=== PATIENT | female | born 1960 | race Two or more races ===

== ENCOUNTER 2017-01-14 20:39 | Emergency (ER) | payer OTHER ==
[2017-01-14 21:03] VITALS: BP 155/93
[2017-01-14] MEDS ORDERED: Ondansetron 4 MG/2 ML SDV IV ONE ×2 (21:09→21:59)
[2017-01-14] MEDS ORDERED: Aspirin 81 MG Tab.Chew PO ONE (21:09)
--- NOTE | 2017-01-14 21:09 | EDM.PDOC ---
ED HPI GENERAL MEDICAL PROBLEM - General Chief Complaint: Chest Pain Stated Complaint: DIZZY,CHEST PAINS Time Seen by Provider: 01/14/17 21:00 Source of Information: Reports: Patient History Limitations: Reports: No Limitations - History of Present Illness INITIAL COMMENTS - FREE TEXT/NARRATIVE: This 56 yo female patient reports to the ED with chest pains, nausea and dizziness. The patient reports her dizziness and nausea started this evening at about 1730. The patient reports her chest pain started just prior to her arrival in the ED. The patient describes her chest pain as a heaviness, but the symptoms subsided prior to my examination. The patient reports she does have polycystic kidneys and has some upper abdominal discomfort on a regular basis due to that. The patient reports after the dizziness started, she attempted to sit down and relax, but every time she got up she was having increased dizziness causing her to sit back down. 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: Other Medication(s) - Related Data Allergies Allergy/AdvReac Type Severity Reaction Status Date / Time ciprofloxacin [From Cipro] Allergy Cannot Verified 01/14/17 20:44 Remember ciprofloxacin HCl Allergy Cannot Verified 01/14/17 20:44 [From Cipro] Remember ibuprofen Allergy Cannot Verified 01/14/17 20:44 Remember latex Allergy Cannot Verified 01/14/17 20:44 Remember Penicillins Allergy Hives Verified 01/14/17 20:44 risedronate sodium Allergy Cannot Verified 01/14/17 20:44 [From Actonel] Remember Home Meds: Home Meds Aspirin [Halfprin] 81 mg PO DAILY 06/01/13 [History] FLUoxetine HCl [Prozac] 20 mg PO DAILY 06/01/13 [History] Labetalol [Normodyne] 200 mg PO DAILY 06/01/13 [History] Lisinopril [Prinivil] 5 mg PO DAILY 06/01/13 [History] Multivitamin [Multivitamins] 1 each PO BEDTIME 12/26/13 [History] Simvastatin [Zocor] 20 mg PO BEDTIME 06/01/13 [History] Zolpidem [Ambien] 5 mg PO BEDTIME PRN 06/01/13 [History] amLODIPine [Norvasc] 10 mg PO BEDTIME 06/01/13 [History] Past Medical History - Past Health History Medical/Surgical History: Denies Medical/Surgical History Social & Family History - Tobacco Use Smoking Status *Q: Never Smoker Used Tobacco, but Quit: Yes Second Hand Smoke Exposure: No - Alcohol Use Days Per Week of Alcohol Use: 0 - Recreational Drug Use Recreational Drug Use: No ED ROS GENERAL - Review of Systems Review Of Systems: ROS reveals no pertinent complaints other than HPI. ED EXAM, GENERAL - Physical Exam Exam: See Below Exam Limited By: No Limitations General Appearance: Alert, WD/WN, Moderate Distress, Obese Eye Exam: Bilateral Eye: EOMI, Normal Inspection, PERRL Ears: Normal External Exam, Normal Canal, Hearing Grossly Normal, Normal TMs Nose: Normal Inspection, Normal Mucosa, No Blood Throat/Mouth: Normal Inspection, Normal Lips, Normal Teeth, Normal Gums, Normal Oropharynx, Normal Voice, No Airway Compromise Head: Atraumatic, Normocephalic Neck: Normal Inspection, Supple, Non-Tender, Full Range of Motion Respiratory/Chest: No Respiratory Distress, Lungs Clear, Normal Breath Sounds, No Accessory Muscle Use, Chest Non-Tender Cardiovascular: Normal Peripheral Pulses, Regular Rate, Rhythm, No Edema, No Gallop, No JVD, No Murmur, No Rub GI/Abdominal: Normal Bowel Sounds, Soft, Tender (generalized upper abdominal tenderness to palpation) (Female) Exam: Deferred Rectal (Female) Exam: Deferred Back Exam: Normal Inspection, Full Range of Motion, NT Extremities: Normal Inspection, Normal Range of Motion, Non-Tender, Normal Capillary Refill, No Pedal Edema Neurological: Alert, Oriented, CN II-XII Intact, Normal Cognition, Normal Gait, Normal Reflexes, No Motor/Sensory Deficits Psychiatric: Normal Affect, Normal Mood Skin Exam: Warm, Dry, Intact, Normal Color, No Rash Lymphatic: No Adenopathy Course - Vital Signs Last Recorded V/S: Last Vital Signs Temp 36.2 C 01/14/17 21:02 Pulse 69 01/14/17 21:02 Resp 12 01/14/17 21:02 BP 155/93 H 01/14/17 21:02 Pulse Ox 100 01/14/17 21:02 - Orders/Labs/Meds Orders: Active Orders 24 hr Category Date Time Status EKG Documentation Completion [RC] URGENT Care 01/14/17 20:41 Active Labs: Laboratory Tests 01/14/17 01/14/17 Range/Units 20:50 20:50 WBC 7.0 (5.0-10.0) 10^3/uL RBC 4.19 L (4.2-5.4) 10^6/uL Hgb 12.9 (12.0-16.0) g/dL Hct 39.5 (37.0-47.0) % MCV 94.3 (80-100) fL MCH 30.8 (27.0-34.0) pg MCHC 32.7 L (33.0-35.0) g/dL Plt Count 235 (150-450) 10^3/uL Neut % (Auto) 40.9 L (42.2-75.2) % Lymph % (Auto) 41.4 (20.5-50.1) % [place] % (Auto) 14.1 H (2-8) % Eos % (Auto) 3.2 H (1.0-3.0) % Baso % (Auto) 0.4 (0.0-1.0) % Sodium 143 (135-145) mmol/L Potassium 4.7 (3.6-5.0) mmol/L Chloride 109 (101-111) mmol/L Carbon Dioxide 24.0 (21.0-31.0) mmol/L Anion Gap 14.7 BUN 29 H (7-18) mg/dL Creatinine 1.6 H (0.6-1.3) mg/dL Est Cr Clr Drug Dosing 35.33 mL/min Estimated GFR (MDRD) 33 BUN/Creatinine Ratio 18.12 Glucose 97 (74-105) mg/dL Calcium 9.4 (8.4-10.2) mg/dl Total Bilirubin 0.6 (0.2-1.0) mg/dL AST 28 (10-42) IU/L ALT 21 (10-60) IU/L Alkaline Phosphatase 73 (42-121) IU/L Troponin I < 0.02 (0.00-0.02) ng/ml Total Protein 7.2 (6.7-8.2) g/dl Albumin 4.4 (3.2-5.5) g/dl Globulin 2.8 Albumin/Globulin Ratio 1.57 Meds: Medications Discontinued Medications Generic Name Dose Route Start Last Admin Trade Name Jody PRN Reason Stop Dose Admin Aspirin 324 mg 01/14/17 21:09 01/14/17 21:14 Aspirin PO 01/14/17 21:10 324 mg ONETIME ONE Administration Meclizine HCl 25 mg 01/14/17 21:53 01/14/17 21:57 Antivert PO 01/14/17 21:54 25 mg ONETIME ONE Administration Ondansetron HCl 4 mg 01/14/17 21:09 01/14/17 21:14 Zofran IV 01/14/17 21:10 4 mg ONETIME ONE Administration Ondansetron HCl 4 mg 01/14/17 21:59 01/14/17 22:05 Zofran IV 01/14/17 22:00 4 mg ONETIME ONE Administration Departure - Departure Time of Disposition: 22:34 Disposition: Home, Self-Care 01 Condition: Fair Clinical Impression: Vertigo Instructions: Vertigo, [id number] Forms: ED Department Discharge Care Plan Goals: The patient and family were advised of the examination, lab, EKG and x-ray result during the visit. The patient was given IV Zofran x2, oral aspirin and oral Meclizine while in the ED. The patient was discharged with a script for Meclizine (25 mg) #15 to take 1 by mouth 3 times per day as needed. The patient was encouraged to follow-up with her primary care facility for continued evaluation (physical therapy) and treatment [place] Maneuvers. If the patient has any additional symptoms or concerns, the patient should follow-up with her primary care facility or return to the emergency department. - My Orders Last 24 Hours: My Active Orders 01/14/17 20:41 EKG Documentation Completion [RC] URGENT - Assessment/Plan Last 24 Hours: My Active Orders 01/14/17 20:41 EKG Documentation Completion [RC] URGENT
[2017-01-14 21:23] LABS: CHLORIDE,CL 109 mmol/L (101-111); SODIUM,NA 143 mmol/L (135-145)
[2017-01-14] MEDS ORDERED: Meclizine 12.5 MG Tab PO ONE (21:53)
[2017-01-14] MEDS ORDERED: Ondansetron 4 MG Tab.DIS PO ONE (23:01)
[2017-01-14] MEDS ORDERED: Ondansetron 4 MG Tab.DIS ONE (23:01)
--- NOTE | 2017-01-15 22:18 | EKG ---
01/14/2017 - ARCELIA SILVA - This 12-lead EKG shows a normal sinus rhythm with a ventricular rate of 67. Normal axis and intervals. No acute ST-segment or T-wave changes. [facility] /[id number]
== END 2017-01-14 23:06 | disposition home or self-care (01) ==
LOC: DL.ED 20:39
DX: R42 Dizziness and giddiness (principal); Z88.1 Allergy status to other antibiotic agents; Z88.8 Allergy status to other drugs, medicaments and biological substances; Z91.040 Latex allergy status; Z79.82 Long term (current) use of aspirin; Z79.899 Other long term (current) drug therapy
CPT/HCPCS: 36415; 71010; 80053; 84484; 85025; 93005; 96374; 96375; 99285; A9270; J2405

== ENCOUNTER 2017-11-06 13:23 | Emergency (ER) | payer OTHER ==
[2017-11-06 14:30] VITALS: BP 141/90
[2017-11-06] MEDS: Acetaminophen/HYDROcodone 325-10 MG Tab PO ONE ×2 (14:40→15:30)
--- NOTE | 2017-11-06 15:24 | EDM.PDOC ---
Scribed by Vaishali Ramsey 11/06/17 1524 for Grover Baron MD ED HPI GENERAL MEDICAL PROBLEM - General Chief Complaint: Upper Extremity Injury/Pain Stated Complaint: LEFT ARM, FELL Time Seen by Provider: 11/06/17 14:24 Source of Information: Reports: Patient, RN, RN Notes Reviewed History Limitations: Reports: No Limitations - History of Present Illness INITIAL COMMENTS - FREE TEXT/NARRATIVE: Patient presents to ER with complaint of ground level fall with left wrist injury. No other injury. Onset: Today Duration: Getting Worse Location: Reports: Upper Extremity, Left Quality: Reports: Ache Severity: Severe Improves with: Reports: None Worsens with: Reports: None Associated Symptoms: Reports: No Other Symptoms Left Lower Arm Pain Score (Numeric/FACES): 7 - Related Data Allergies Allergy/AdvReac Type Severity Reaction Status Date / Time ciprofloxacin [From Cipro] Allergy Cannot Verified 01/14/17 20:44 Remember ciprofloxacin HCl Allergy Cannot Verified 01/14/17 20:44 [From Cipro] Remember ibuprofen Allergy Cannot Verified 01/14/17 20:44 Remember latex Allergy Cannot Verified 01/14/17 20:44 Remember Penicillins Allergy Hives Verified 01/14/17 20:44 risedronate sodium Allergy Cannot Verified 01/14/17 20:44 [From Actonel] Remember Home Meds: Home Meds Aspirin [Halfprin] 81 mg PO DAILY 06/01/13 [History] FLUoxetine HCl [Prozac] 20 mg PO DAILY 06/01/13 [History] Labetalol [Normodyne] 200 mg PO DAILY 06/01/13 [History] Lisinopril [Prinivil] 5 mg PO DAILY 06/01/13 [History] Multivitamin [Multivitamins] 1 each PO BEDTIME 06/01/13 [History] Simvastatin [Zocor] 20 mg PO BEDTIME 06/01/13 [History] Zolpidem [Ambien] 5 mg PO BEDTIME PRN 06/01/13 [History] amLODIPine [Norvasc] 10 mg PO BEDTIME 06/01/13 [History] Past Medical History - Past Health History Medical/Surgical History: Denies Medical/Surgical History Cardiovascular History: Reports: High Cholesterol, Hypertension Genitourinary History: Reports: Other (See Below) Other Genitourinary History: Polycystic kidney disease, stage 3 Social & Family History - Family History Family Medical History: Noncontributory - Caffeine Use Caffeine Use: Reports: Coffee Review of Systems - Review of Systems Review Of Systems: ROS reveals no pertinent complaints other than HPI. ED EXAM, GENERAL - Physical Exam Exam: See Below Exam Limited By: No Limitations General Appearance: Alert, WD/WN, No Apparent Distress Head: Atraumatic, Normocephalic Neck: Normal Inspection, Supple, Non-Tender, Full Range of Motion Respiratory/Chest: No Respiratory Distress Extremities: Normal Capillary Refill, Arm Pain (acutely tender at left wrist with mild soft tissue swelling. No visible bruising or deformity. Normal skin.) Neurological: Alert, Oriented, CN II-XII Intact, Normal Cognition, Normal Gait, No Motor/Sensory Deficits Psychiatric: Normal Affect Skin Exam: Warm, Dry, Intact, Normal Color, No Rash ED TRAUMA EXTREMITY PROCEDURES - Splinting Left Upper Extremity Splint Site: left wrist Pre-Procedure NV Status: Normal Post-Procedure NV Status: Normal Splint Material: Fiberglass Splint Design: Volar, Sling Applied & Form Fitted By: Provider Provider Post-Splint Application NV Check: NV Status Normal, Good Position Complications: No Course - Vital Signs Last Recorded V/S: Last Vital Signs Temp 36.3 C 11/06/17 14:28 Pulse 80 11/06/17 14:28 Resp 20 11/06/17 14:28 BP 141/90 H 11/06/17 14:28 Pulse Ox 99 11/06/17 14:28 - Orders/Labs/Meds Orders: Active Orders 24 hr Category Date Time Status Splinting [RC] ASDIRECTED Care 11/06/17 14:27 Active Meds: Medications Discontinued Medications Generic Name Dose Route Start Last Admin Trade Name Freq PRN Reason Stop Dose Admin Hydrocodone Bitart/Acetaminophen 1 tab 11/06/17 14:27 11/06/17 14:40 [place] 325-10 Mg PO 11/06/17 14:28 1 tab ONETIME ONE Administration - Radiology Interpretation Free Text/Narrative:: Left forearm x-ray: Acute distal radius fracture, as above. See rad report. Left wrist x-ray: Acute distal radius fracture, as above. See rad report. Departure - Departure Time of Disposition: 15:19 Disposition: Home, Self-Care 01 Condition: Good Clinical Impression: Closed fracture of distal end of radius Qualifiers: Encounter type: initial encounter Fracture morphology: unspecified fracture morphology Laterality: left Qualified Code(s): S52.502A - Unspecified fracture of the lower end of left radius, initial encounter for closed fracture - Discharge Information Instructions: Wrist Fracture Treated With Immobilization, [id number], Cast or Splint Care, Adult, [id number] Referrals: Calixto Polo MD [Primary Care Provider] - Forms: ED Department Discharge Additional Instructions: Rx: Hydrocodone APAP 5mg/325mg *Do not drive while under the influence of this medication. Do not remove splint. Call [facility] Wednesday (November 08) to schedule an appointment: [phone] - My Orders Last 24 Hours: My Active Orders 11/06/17 14:27 Splinting [RC] ASDIRECTED - Assessment/Plan Last 24 Hours: My Active Orders 11/06/17 14:27 Splinting [RC] ASDIRECTED I have read and agree with the documentation that has been completed regarding this visit. By signing this record, I attest that the documentation was completed in my physical presence and is an accurate record of the encounter.
== END 2017-11-06 15:38 | disposition home or self-care (01) ==
LOC: DL.ED 13:23
DX: S52.502A Unspecified fracture of the lower end of left radius, initial encounter for closed fracture (principal); E78.00 Pure hypercholesterolemia, unspecified; I10 Essential (primary) hypertension; Z88.1 Allergy status to other antibiotic agents; Z88.6 Allergy status to analgesic agent; Z91.040 Latex allergy status; Z88.0 Allergy status to penicillin; Z88.8 Allergy status to other drugs, medicaments and biological substances; Z79.82 Long term (current) use of aspirin; Z79.899 Other long term (current) drug therapy; W19.XXXA Unspecified fall, initial encounter
CPT/HCPCS: 73090-LT; 73100-LT; 99283; A9270-GY

== ENCOUNTER 2019-06-05 20:25 | Emergency (ER) | payer BC, OTHER ==
[2019-06-05 21:02] VITALS: BP 142/68; PULSE 91
[2019-06-05] MEDS ORDERED: Ondansetron 4 MG/2 ML SDV IV ONE (21:04)
[2019-06-05] MEDS ORDERED: Sodium Chloride 0.9% 1,000 ML IV ONE (21:04)
[2019-06-05 21:53] LABS: ANION GAP 14.9
[2019-06-05] MEDS ORDERED: Acetaminophen 325 MG Tab PO ONE (22:08)
[2019-06-05] MEDS ORDERED: cefTRIAXone 1 GM, Lidocaine 1% 2.1 ML IM ONE ×2 (22:48)
--- NOTE | 2019-06-05 22:58 | EDM.PDOC ---
ED HPI GENERAL MEDICAL PROBLEM - General Chief Complaint: General Stated Complaint: THROWING UP JUST SICK FLU Time Seen by Provider: 06/05/19 21:10 Source of Information: Reports: Patient, RN History Limitations: Reports: No Limitations - History of Present Illness INITIAL COMMENTS - FREE TEXT/NARRATIVE: ED with c/o fever chills back/ kidney pain vomiting x2 today. decreased appetite but tolerating liquids well. Generalized Pain Score (Numeric/FACES): 7 - Related Data Allergies Allergy/AdvReac Type Severity Reaction Status Date / Time ciprofloxacin [From Cipro] Allergy Cannot Verified 06/05/19 20:59 Remember ciprofloxacin HCl Allergy Cannot Verified 06/05/19 20:59 [From Cipro] Remember ibuprofen Allergy Cannot Verified 06/05/19 20:59 Remember latex Allergy Cannot Verified 06/05/19 20:59 Remember Penicillins Allergy Hives Verified 06/05/19 20:59 risedronate sodium Allergy Cannot Verified 06/05/19 20:59 [From Actonel] Remember Home Meds: Home Meds Aspirin [Halfprin] 81 mg PO DAILY 06/01/13 [History] FLUoxetine HCl [Prozac] 20 mg PO DAILY 06/01/13 [History] Labetalol [Normodyne] 200 mg PO DAILY 06/01/13 [History] Multivitamin [Multivitamins] 1 each PO BEDTIME 06/01/13 [History] Simvastatin [Zocor] 20 mg PO BEDTIME 06/01/13 [History] Zolpidem [Ambien] 5 mg PO BEDTIME PRN 06/01/13 [History] amLODIPine [Norvasc] 10 mg PO BEDTIME 06/01/13 [History] lisinopriL [Prinivil] 5 mg PO DAILY 06/01/13 [History] Past Medical History - Past Health History Medical/Surgical History: Denies Medical/Surgical History Cardiovascular History: Reports: High Cholesterol, Hypertension Respiratory History: Reports: None Genitourinary History: Reports: Other (See Below) Other Genitourinary History: Polycystic kidney disease, stage 3 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 Musculoskeletal History: Reports: None Psychiatric History: Reports: None Endocrine/Metabolic History: Reports: None Hematologic History: Reports: None Immunologic History: Reports: None Oncologic (Cancer) History: Reports: None Dermatologic History: Reports: None - Past Surgical History HEENT Surgical History: Reports: Adenoidectomy, Tonsillectomy Social & Family History - Family History Family Medical History: Noncontributory - Tobacco Use Smoking Status *Q: Never Smoker - Caffeine Use Caffeine Use: Reports: Coffee - Recreational Drug Use Recreational Drug Use: No ED ROS GENERAL - Review of Systems Review Of Systems: See Below Constitutional: Reports: Fever, Malaise, Decreased Appetite HEENT: Reports: No Symptoms Respiratory: Reports: No Symptoms Cardiovascular: Reports: No Symptoms : Reports: Flank Pain. Denies: Frequency Musculoskeletal: Reports: Muscle Stiffness Skin: Reports: No Symptoms Neurological: Reports: No Symptoms ED EXAM, GENERAL - Physical Exam Exam: See Below Exam Limited By: No Limitations General Appearance: Alert, Mild Distress Eye Exam: Bilateral Eye: EOMI Ears: Normal External Exam Nose: Normal Inspection Throat/Mouth: Normal Inspection Head: Atraumatic, Normocephalic Neck: Normal Inspection Respiratory/Chest: No Respiratory Distress, Lungs Clear, Normal Breath Sounds Cardiovascular: Normal Peripheral Pulses, Regular Rate, Rhythm GI/Abdominal: Normal Bowel Sounds Extremities: Normal Inspection Neurological: Alert, Oriented Psychiatric: Normal Affect Skin Exam: Warm, Dry, Intact, Normal Color Course - Vital Signs Last Recorded V/S: Last Vital Signs Temp 98.3 F 06/05/19 21:00 Pulse 91 06/05/19 21:00 Resp 18 06/05/19 21:00 BP 142/68 H 06/05/19 21:00 Pulse Ox 100 06/05/19 21:00 - Orders/Labs/Meds Orders: Active Orders 24 hr Category Date Time Status CULTURE URINE [RM] Urgent Lab 06/05/19 21:55 Received Labs: Laboratory Tests 06/05/19 06/05/19 06/05/19 Range/Units 21:20 21:20 21:55 WBC 9.4 (5.0-10.0) 10^3/uL RBC 3.99 L (4.2-5.4) 10^6/uL Hgb 12.4 (12.0-16.0) g/dL Hct 37.3 (37.0-47.0) % MCV 93.5 (80-100) fL MCH 31.1 (27.0-34.0) pg MCHC 33.2 (33.0-35.0) g/dL Plt Count 132 L D (150-450) 10^3/uL Neut % (Auto) 77.2 H (42.2-75.2) % Lymph % (Auto) 9.4 L (20.5-50.1) % [place] % (Auto) 13.0 H (2-8) % Eos % (Auto) 0.0 L (1.0-3.0) % Baso % (Auto) 0.4 (0.0-1.0) % Sodium 134 L (135-145) mmol/L Potassium 3.9 (3.6-5.0) mmol/L Chloride 103 (101-111) mmol/L Carbon Dioxide 20.0 L (21.0-31.0) mmol/L Anion Gap 14.9 BUN 30 H (7-18) mg/dL Creatinine 2.0 H (0.6-1.3) mg/dL Est Cr Clr Drug Dosing 28.70 mL/min Estimated GFR (MDRD) 26 BUN/Creatinine Ratio 15.00 Glucose 135 H (74-105) mg/dL Calcium 8.9 (8.4-10.2) mg/dl Total Bilirubin 0.7 (0.2-1.0) mg/dL AST 37 (10-42) IU/L ALT 18 (10-60) IU/L Alkaline Phosphatase 71 (42-121) IU/L Total Protein 6.7 (6.7-8.2) g/dl Albumin 4.0 (3.2-5.5) g/dl Globulin 2.7 Albumin/Globulin Ratio 1.48 Amylase 46 (28-100) U/L Lipase 24 (22-51) U/L Urine Color Yellow (YELLOW) Urine Appearance Slightly cloudy (CLEAR) Urine pH 6.0 (5.0-9.0) Ur Specific [place] 1.010 (1.005-1.030) Urine Protein 30 H (NEGATIVE) Urine Glucose (UA) Negative (NEGATIVE) Urine Ketones Trace H (NEGATIVE) Urine Occult Blood Negative (NEGATIVE) Urine Nitrite Negative (NEGATIVE) Urine Bilirubin Negative (NEGATIVE) Urine Urobilinogen 0.2 (0.2-1.0) mg/dL Ur Leukocyte Esterase Moderate H (NEGATIVE) Urine RBC 0-5 /HPF Urine WBC 30-40 H (0-5/HPF) /HPF Ur Epithelial Cells Moderate H (NOT SEEN) /HPF Urine Bacteria Moderate H (0-FEW/HPF) /HPF Meds: Medications Discontinued Medications Generic Name Dose Route Start Last Admin Trade Name Jody PRN Reason Stop Dose Admin Acetaminophen 650 mg 06/05/19 22:08 06/05/19 22:16 Tylenol PO 06/05/19 22:09 650 mg NOW ONE Administration Ceftriaxone Sodium 1 gm/ 0 gm 06/05/19 22:48 06/05/19 23:01 Lidocaine HCl 2.1 ml IM 06/05/19 22:49 2.1 inj ONETIME ONE Administration Sodium Chloride 1,000 mls @ 999 mls/hr 06/05/19 21:04 06/05/19 22:29 Normal Saline IV 06/05/19 22:04 Infused .BOLUS ONE Infusion Ondansetron HCl 4 mg 06/05/19 21:04 06/05/19 21:22 Zofran IV 06/05/19 21:05 4 mg ONETIME ONE Administration Departure - Departure Time of Disposition: 22:55 Disposition: Home, Self-Care 01 Condition: Good Clinical Impression: UTI (urinary tract infection) Qualifiers: Urinary tract infection type: site unspecified Hematuria presence: without hematuria Qualified Code(s): N39.0 - Urinary tract infection, site not specified - Discharge Information *PRESCRIPTION DRUG MONITORING PROGRAM REVIEWED*: No *COPY OF PRESCRIPTION DRUG MONITORING REPORT IN PATIENT SUDHAKAR: No Instructions: Urinary Tract Infection, Adult, [id number] Referrals: PCP,None [Ordering Only Provider] - Forms: ED Department Discharge Additional Instructions: increase fluid intake cefdinir 300mg one twice daily for 10 days recheck clinic or wednesday diet as tolerated Sepsis Event Note - Evaluation Sepsis Screening Result: No Definite Risk - Focused Exam Vital Signs: Vital Signs Temp Pulse Resp BP Pulse Ox 06/05/19 21:00 98.3 F 91 18 142/68 H 100 Date Exam was Performed: 06/06/19 Time Exam was Performed: 04:52 - My Orders Last 24 Hours: My Active Orders 06/05/19 21:55 CULTURE URINE [RM] Urgent - Assessment/Plan Last 24 Hours: My Active Orders 06/05/19 21:55 CULTURE URINE [RM] Urgent
== END 2019-06-05 23:16 | disposition home or self-care (01) ==
LOC: DL.ED 20:25
DX: N39.0 Urinary tract infection, site not specified (principal); I10 Essential (primary) hypertension; Z88.1 Allergy status to other antibiotic agents; Z88.8 Allergy status to other drugs, medicaments and biological substances; Z88.0 Allergy status to penicillin; Z91.040 Latex allergy status; Z79.82 Long term (current) use of aspirin; Z79.899 Other long term (current) drug therapy
CPT/HCPCS: 36415; 80053; 81001; 82150; 83690; 85025; 87086; 87088; 87186; 87804; 96361; 96372; 96374; 99284; A9270; J0696; J2001; J2405; J7030

== ENCOUNTER 2021-02-28 19:23 | Emergency (ER) | payer BC, OTHER ==
[2021-02-28 19:54] VITALS: BP 149/89; PULSE 84
[2021-02-28] MEDS ORDERED: Acetaminophen 325 MG Tab PO ONE (20:48)
--- NOTE | 2021-02-28 21:17 | EDM.PDOC ---
ED HPI GENERAL MEDICAL PROBLEM - General Chief Complaint: General Stated Complaint: CHILLS, BONES HURT, SORE BLADDER, HEADACHE Time Seen by Provider: 02/28/21 20:51 Source of Information: Reports: Patient, RN, RN Notes Reviewed History Limitations: Reports: No Limitations - History of Present Illness INITIAL COMMENTS - FREE TEXT/NARRATIVE: Rachana is a 60 y/o female with a history of polycystic kidney disease who presents to the ED via personal vehicle with complaints of fever, muscle aches, nausea, and right flank pain. The patient states her symptoms began suddenly this morning upon awakening and have maintained throughout the day. She states she typically feels this way when she has a urinary tract infection. She denies dysuria, hematuria, or vaginal discharge. She denies recent illness, shortness of breath, abdominal pain, vomiting, constipation, or diarrhea. She has taken no medications or performed any supportive cares for her symptoms. The patient states she is vaccinated for COVID. She denies tobacco, alcohol, or recreational drug use. - Related Data Allergies Allergy/AdvReac Type Severity Reaction Status Date / Time ciprofloxacin [From Cipro] Allergy Cannot Verified 06/05/19 20:59 Remember ciprofloxacin HCl Allergy Cannot Verified 06/05/19 20:59 [From Cipro] Remember ibuprofen Allergy Cannot Verified 06/05/19 20:59 Remember latex Allergy Cannot Verified 06/05/19 20:59 Remember Penicillins Allergy Hives Verified 06/05/19 20:59 risedronate sodium Allergy Cannot Verified 06/05/19 20:59 [From Actonel] Remember Home Meds: Home Meds Aspirin [Halfprin] 81 mg PO DAILY 06/01/13 [History] FLUoxetine HCl [Prozac] 20 mg PO DAILY 06/01/13 [History] Labetalol [Normodyne] 200 mg PO DAILY 06/01/13 [History] Multivitamin [Multivitamins] 1 each PO BEDTIME 06/01/13 [History] Simvastatin [Zocor] 20 mg PO BEDTIME 06/01/13 [History] Zolpidem [Ambien] 5 mg PO BEDTIME PRN 06/01/13 [History] amLODIPine [Norvasc] 10 mg PO BEDTIME 06/01/13 [History] Omeprazole 20 mg PO DAILY 12/23/20 [History] Past Medical History - Past Health History Medical/Surgical History: Denies Medical/Surgical History Cardiovascular History: Reports: High Cholesterol, Hypertension Respiratory History: Reports: None Genitourinary History: Reports: Other (See Below) Other Genitourinary History: Polycystic kidney disease, stage 3 [employer]ER History: Reports: None Musculoskeletal History: Reports: None Psychiatric History: Reports: None Endocrine/Metabolic History: Reports: None Hematologic History: Reports: None Immunologic History: Reports: None Oncologic (Cancer) History: Reports: None Dermatologic History: Reports: None - Past Surgical History HEENT Surgical History: Reports: Adenoidectomy, Tonsillectomy Social & Family History - Family History Family Medical History: No Pertinent Family History - Caffeine Use Caffeine Use: Reports: Coffee ED ROS GENERAL - Review of Systems Review Of Systems: Comprehensive ROS is negative, except as noted in HPI. ED EXAM, GENERAL - Physical Exam Exam: See Below Exam Limited By: No Limitations General Appearance: Alert, Obese, Other (Ill-appearing female) Eye Exam: Bilateral Eye: EOMI, Normal Inspection, PERRL (3mm) Ears: Normal External Exam, Normal Canal, Hearing Grossly Normal Ear Exam: Bilateral Ear: Auricle Normal, Canal Normal, TM normal Nose: Normal Inspection, Normal Mucosa, No Blood Throat/Mouth: Normal Inspection, Normal Oropharynx, Normal Voice, No Airway Compromise Head: Atraumatic, Normocephalic Neck: Normal Inspection, Supple, Non-Tender, Full Range of Motion. No: Lymphadenopathy (L), Lymphadenopathy (R) Respiratory/Chest: No Respiratory Distress, Lungs Clear, Normal Breath Sounds, No Accessory Muscle Use, Chest Non-Tender Cardiovascular: Normal Peripheral Pulses, Regular Rate, Rhythm, No Edema, No Gallop, No JVD, No Murmur, No Rub Peripheral Pulses: 2+: Radial (L), Radial (R) GI/Abdominal: Normal Bowel Sounds, Soft, Non-Tender, No Distention, No Abnormal Bruit, No Mass, Pelvis Stable (Female) Exam: Deferred Rectal (Female) Exam: Deferred Back Exam: Normal Inspection, Full Range of Motion, CVA Tenderness (R). No: CVA Tenderness (L) Extremities: Normal Inspection, Normal Range of Motion, Normal Capillary Refill Neurological: Alert, Oriented, CN II-XII Intact, Normal Cognition, Normal Gait, No Motor/Sensory Deficits Psychiatric: Normal Affect, Normal Mood Skin Exam: Warm, Dry, Intact, Normal Color, No Rash. No: Cyanosis, Jaundice, Mottled, Pallor Course - Vital Signs Last Recorded V/S: Last Vital Signs Temp 97.9 F 02/28/21 19:49 Pulse 84 02/28/21 19:49 Resp 18 02/28/21 19:49 BP 149/89 H 02/28/21 19:49 Pulse Ox 95 02/28/21 19:49 - Orders/Labs/Meds Labs: Laboratory Tests 02/28/21 02/28/21 02/28/21 Range/Units 19:45 19:45 21:06 WBC 7.4 (5.0-10.0) 10^3/uL RBC 3.92 L (4.2-5.4) 10^6/uL Hgb 12.1 (12.0-16.0) g/dL Hct 37.2 (37.0-47.0) % MCV 94.9 (80-100) fL MCH 30.9 (27.0-34.0) pg MCHC 32.5 L (33.0-35.0) g/dL Plt Count 230 D (150-450) 10^3/uL Neut % (Auto) 72.0 (42.2-75.2) % Lymph % (Auto) 15.2 L (20.5-50.1) % [place] % (Auto) 11.6 H (2-8) % Eos % (Auto) 0.8 L (1.0-3.0) % Baso % (Auto) 0.4 (0.0-1.0) % Sodium (136-145) mmol/L Potassium (3.5-5.1) mmol/L Chloride (98-107) mmol/L Carbon Dioxide (21-32) mmol/L Anion Gap (7-13) mEq/L BUN (7-18) mg/dL Creatinine (0.55-1.02) mg/dL Est Cr Clr Drug Dosing Estimated GFR (MDRD) BUN/Creatinine Ratio (No establ ref range) Glucose (70-99) mg/dL Calcium (8.5-10.1) mg/dL Magnesium (1.8-2.4) mg/dL Total Bilirubin (0.2-1.0) mg/dL AST (15-37) U/L ALT (14-59) U/L Alkaline Phosphatase (46-116) U/L C-Reactive Protein (0.0-0.9) mg/dL Total Protein (6.4-8.2) g/dL Albumin (3.4-5.0) g/dL Globulin Albumin/Globulin Ratio Urine Color Yellow (YELLOW) Urine Appearance Slightly cloudy (CLEAR) Urine pH 7.5 (5.0-9.0) Ur Specific [place] 1.020 (1.005-1.030) Urine Protein Negative (NEGATIVE) Urine Glucose (UA) Negative (NEGATIVE) Urine Ketones Negative (NEGATIVE) Urine Occult Blood Negative (NEGATIVE) Urine Nitrite Negative (NEGATIVE) Urine Bilirubin Negative (NEGATIVE) Urine Urobilinogen 0.2 (0.2-1.0) mg/dL Ur Leukocyte Esterase Trace H (NEGATIVE) Urine RBC 0-5 (0-5) /HPF Urine WBC 5-10 H (0-5/HPF) /HPF Ur Epithelial Cells Rare (NOT SEEN) /HPF Urine Bacteria Rare (0-FEW/HPF) /HPF Urine Mucus Rare (NOT SEEN) /LPF SARS-CoV-2 RNA (STACEY) Negative (NEGATIVE) 02/28/21 Range/Units 21:06 WBC (5.0-10.0) 10^3/uL RBC (4.2-5.4) 10^6/uL Hgb (12.0-16.0) g/dL Hct (37.0-47.0) % MCV (80-100) fL MCH (27.0-34.0) pg MCHC (33.0-35.0) g/dL Plt Count (150-450) 10^3/uL Neut % (Auto) (42.2-75.2) % Lymph % (Auto) (20.5-50.1) % [place] % (Auto) (2-8) % Eos % (Auto) (1.0-3.0) % Baso % (Auto) (0.0-1.0) % Sodium 134 L (136-145) mmol/L Potassium 4.8 (3.5-5.1) mmol/L Chloride 101 (98-107) mmol/L Carbon Dioxide 24 (21-32) mmol/L Anion Gap 13.8 H (7-13) mEq/L BUN 25 H (7-18) mg/dL Creatinine 2.23 H (0.55-1.02) mg/dL Est Cr Clr Drug Dosing TNP Estimated GFR (MDRD) 22 BUN/Creatinine Ratio 11.2 (No establ ref range) Glucose 105 H (70-99) mg/dL Calcium 8.9 (8.5-10.1) mg/dL Magnesium 1.8 (1.8-2.4) mg/dL Total Bilirubin 0.7 (0.2-1.0) mg/dL AST 18 (15-37) U/L ALT 23 (14-59) U/L Alkaline Phosphatase 82 (46-116) U/L C-Reactive Protein 1.2 H (0.0-0.9) mg/dL Total Protein 6.8 (6.4-8.2) g/dL Albumin 3.7 (3.4-5.0) g/dL Globulin 3.1 Albumin/Globulin Ratio 1.2 Urine Color (YELLOW) Urine Appearance (CLEAR) Urine pH (5.0-9.0) Ur Specific [place] (1.005-1.030) Urine Protein (NEGATIVE) Urine Glucose (UA) (NEGATIVE) Urine Ketones (NEGATIVE) Urine Occult Blood (NEGATIVE) Urine Nitrite (NEGATIVE) Urine Bilirubin (NEGATIVE) Urine Urobilinogen (0.2-1.0) mg/dL Ur Leukocyte Esterase (NEGATIVE) Urine RBC (0-5) /HPF Urine WBC (0-5/HPF) /HPF Ur Epithelial Cells (NOT SEEN) /HPF Urine Bacteria (0-FEW/HPF) /HPF Urine Mucus (NOT SEEN) /LPF SARS-CoV-2 RNA (STACEY) (NEGATIVE) Meds: Medications Discontinued Medications Generic Name Dose Route Start Last Admin Trade Name Freq PRN Reason Stop Dose Admin Acetaminophen 650 mg 02/28/21 20:48 02/28/21 20:53 Acetaminophen 325 Mg Tab PO 02/28/21 20:49 650 mg NOW ONE Administration - Re-Assessments/Exams Free Text/Narrative Re-Assessment/Exam: 02/28/21 Acetaminophen 650mg PO administered for fever. Findings of examination and lab work reviewed with patient. Discussed fluids and Zofran for symptoms; patient states she would like to discharge home without fluids or antiemetic. Red flag signs and symptoms which would warrant reevaluation reviewed. Patient verbalized understanding and agreement with the plan of care. Departure - Departure Time of Disposition: 22:51 Disposition: Home, Self-Care 01 Condition: Fair Clinical Impression: History of polycystic kidney disease Fever Qualifiers: Fever type: unspecified Qualified Code(s): R50.9 - Fever, unspecified - Discharge Information *PRESCRIPTION DRUG MONITORING PROGRAM REVIEWED*: Not Applicable *COPY OF PRESCRIPTION DRUG MONITORING REPORT IN PATIENT SUDHAKAR: Not Applicable Instructions: Fever, Adult Referrals: Marky Chaidez [Primary Care Provider] - Forms: ED Department Discharge Additional Instructions: 1.) Follow up with your primary care provider in 3-5 days regarding today's visit. 2.) Drink plenty of fluids to stay hydrated. 3.) Eat small, snack-sized meals to avoid nausea. 4.) Return to the emergency department with any persistent or worsening symptoms in the next 24-48 hours.
[2021-02-28 21:39] LABS: ANION GAP 13.8 mEq/L (7-13); CHLORIDE,CL 101 mmol/L (98-107); SODIUM,NA 134 mmol/L (136-145)
== END 2021-02-28 23:09 | disposition home or self-care (01) ==
LOC: DL.ED 19:23
DX: R50.9 Fever, unspecified (principal); E78.00 Pure hypercholesterolemia, unspecified; I10 Essential (primary) hypertension; Z87.898 Personal history of other specified conditions; Z88.1 Allergy status to other antibiotic agents; Z88.6 Allergy status to analgesic agent; Z91.040 Latex allergy status; Z88.0 Allergy status to penicillin; Z88.8 Allergy status to other drugs, medicaments and biological substances; Z79.82 Long term (current) use of aspirin; Z79.899 Other long term (current) drug therapy; Z20.822 Contact with and (suspected) exposure to COVID-19
CPT/HCPCS: 36415; 80053; 81001; 83735; 85025; 86140; 87086; 87635; 99284; A9270; U0002

== ENCOUNTER 2021-03-02 17:50 | Emergency (ER) | payer BC, OTHER ==
[2021-03-02 18:27] LABS: AMPHETAMINES,URINE NEGATIVE (NEGATIVE); BARBITURATES,URINE NEGATIVE (NEGATIVE); BENZODIAZEPINE,URINE NEGATIVE (NEGATIVE); MDMA (ECSTASY), URINE NEGATIVE (NEGATIVE); METHADONE,URINE NEGATIVE (NEGATIVE); METHAMPHETAMINES,URINE NEGATIVE (NEGATIVE); OPIATES,URINE NEGATIVE (NEGATIVE); OXYCODONE,URINE NEGATIVE (NEGATIVE); PHENCYCLIDINE,URINE NEGATIVE (NEGATIVE); TCA,URINE NEGATIVE (NEGATIVE)
[2021-03-02 18:32] VITALS: BP 115/68; PULSE 95
[2021-03-02] MEDS ORDERED: Phenazopyridine 95 MG Tab PO ONE (20:22)
[2021-03-02] MEDS ORDERED: Ondansetron 4 MG Tab.DIS PO ONE (20:22)
[2021-03-02] MEDS ORDERED: Cephalexin 500 MG Cap PO ONE (20:25)
--- NOTE | 2021-03-02 20:26 | EDM.PDOC ---
ED HPI GENERAL MEDICAL PROBLEM - General Chief Complaint: Genitourinary Problem Stated Complaint: 98.4* ,CHILLS, SORE BLADDER, VOMITING, HEAD ACHE Time Seen by Provider: 03/02/21 20:30 Source of Information: Reports: Patient, Old Records, RN, RN Notes Reviewed History Limitations: Reports: No Limitations - History of Present Illness INITIAL COMMENTS - FREE TEXT/NARRATIVE: Rachana is a 60 y/o female with history of polycystic kidney disease who presents to the ED via personal vehicle with complaints of bilateral flank pain, body aches, headache, and dysuria. The patient states her symptoms have maintained since she was evaluated at this facility two nights ago. She notes she has been taking doses of Tylenol q6h with no alleviation in symptoms. Additionally, she notes nausea, vomiting, and diarrhea. - Related Data Allergies Allergy/AdvReac Type Severity Reaction Status Date / Time ciprofloxacin [From Cipro] Allergy Cannot Verified 03/02/21 18:33 Remember ciprofloxacin HCl Allergy Cannot Verified 03/02/21 18:33 [From Cipro] Remember ibuprofen Allergy Cannot Verified 03/02/21 18:33 Remember latex Allergy Cannot Verified 03/02/21 18:33 Remember Penicillins Allergy Hives Verified 03/02/21 18:33 risedronate sodium Allergy Cannot Verified 03/02/21 18:33 [From Actonel] Remember Home Meds: Home Meds Aspirin [Halfprin] 81 mg PO DAILY 06/01/13 [History] FLUoxetine HCl [Prozac] 20 mg PO DAILY 06/01/13 [History] Labetalol [Normodyne] 200 mg PO DAILY 06/01/13 [History] Multivitamin [Multivitamins] 1 each PO BEDTIME 06/01/13 [History] Simvastatin [Zocor] 20 mg PO BEDTIME 06/01/13 [History] Zolpidem [Ambien] 5 mg PO BEDTIME PRN 06/01/13 [History] amLODIPine [Norvasc] 10 mg PO BEDTIME 06/01/13 [History] Omeprazole 20 mg PO DAILY 12/23/20 [History] Past Medical History - Past Health History Medical/Surgical History: Denies Medical/Surgical History Cardiovascular History: Reports: High Cholesterol, Hypertension Respiratory History: Reports: None Gastrointestinal History: Reports: None Genitourinary History: Reports: Other (See Below) Other Genitourinary History: Polycystic kidney disease, stage 3 [facility] History: Reports: None Musculoskeletal History: Reports: None Neurological History: Reports: None Psychiatric History: Reports: None Endocrine/Metabolic History: Reports: None Hematologic History: Reports: None Immunologic History: Reports: None Oncologic (Cancer) History: Reports: None Dermatologic History: Reports: None - Infectious Disease History Infectious Disease History: Reports: Chicken Pox, Mumps - Past Surgical History Head Surgeries/Procedures: Reports: None HEENT Surgical History: Reports: Adenoidectomy, Tonsillectomy Female Surgical History: Reports: Breast Reduction, Section, Hysterectomy Social & Family History - Family History Family Medical History: No Pertinent Family History - Tobacco Use Tobacco Use Status *Q: Never Tobacco User Second Hand Smoke Exposure: No - Caffeine Use Caffeine Use: Reports: Coffee - Recreational Drug Use Recreational Drug Use: No ED ROS GENERAL - Review of Systems Review Of Systems: Comprehensive ROS is negative, except as noted in HPI. ED EXAM, RENAL/ - Physical Exam Exam: See Below Exam Limited By: No Limitations General Appearance: Alert, Obese, Other (Ill-appearing). No: Active Emesis Eye Exam: Bilateral Eye: EOMI, Normal Inspection Ears: Normal External Exam, Hearing Grossly Normal Nose: Normal Inspection, Normal Mucosa, No Blood Throat/Mouth: Normal Inspection, Normal Oropharynx, Normal Voice, No Airway Compromise Head: Atraumatic, Normocephalic Neck: Normal Inspection, Full Range of Motion Respiratory/Chest: No Respiratory Distress, Lungs Clear, Chest Non-Tender Cardiovascular: Normal Peripheral Pulses, Regular Rate, Rhythm, No Edema, No Gallop, No JVD, No Murmur, No Rub GI/Abdominal: Soft, No Distention, No Abnormal Bruit, No Mass, Pelvis Stable, Tender (Diffuse to abdomen, extending into right flank), Abnormal Bowel Sounds (Hypoactive bowel sounds) (Female) Exam: Deferred Rectal (Female) Exam: Deferred Back Exam: CVA Tenderness (R). No: CVA Tenderness (L), Paraspinal Tenderness, Vertebral Tenderness Extremities: Normal Inspection, Normal Range of Motion, Non-Tender, No Pedal Edema, Normal Capillary Refill Neurological: Alert, Oriented, CN II-XII Intact, Normal Cognition, Normal Gait, No Motor/Sensory Deficits Psychiatric: Normal Affect, Tearful Skin Exam: Warm, Dry, Intact, Normal Color, No Rash. No: Cyanosis, Diaphoretic, Jaundice, Mottled, Pallor Lymphatic: No Adenopathy Course - Vital Signs Last Recorded V/S: Last Vital Signs Temp 99.5 F 03/02/21 18:13 Pulse 95 03/02/21 18:13 Resp 16 03/02/21 18:13 BP 115/68 03/02/21 18:13 Pulse Ox 94 L 03/02/21 18:13 - Orders/Labs/Meds Orders: Active Orders 24 hr Category Date Time Status CULTURE URINE [RM] Stat Lab 03/02/21 18:00 Received Labs: Laboratory Tests 03/02/21 03/02/21 03/02/21 Range/Units 18:00 18:00 21:13 WBC 8.8 (5.0-10.0) 10^3/uL RBC 3.76 L (4.2-5.4) 10^6/uL Hgb 11.6 L (12.0-16.0) g/dL Hct 35.5 L (37.0-47.0) % MCV 94.4 (80-100) fL MCH 30.9 (27.0-34.0) pg MCHC 32.7 L (33.0-35.0) g/dL Plt Count 182 (150-450) 10^3/uL Neut % (Auto) 80.1 H (42.2-75.2) % Lymph % (Auto) 10.3 L (20.5-50.1) % [place] % (Auto) 9.5 H (2-8) % Eos % (Auto) 0.0 L (1.0-3.0) % Baso % (Auto) 0.1 (0.0-1.0) % Sodium (136-145) mmol/L Potassium (3.5-5.1) mmol/L Chloride (98-107) mmol/L Carbon Dioxide (21-32) mmol/L Anion Gap (7-13) mEq/L BUN (7-18) mg/dL Creatinine (0.55-1.02) mg/dL Est Cr Clr Drug Dosing mL/min Estimated GFR (MDRD) BUN/Creatinine Ratio (No establ ref range) Glucose (70-99) mg/dL Lactic Acid (0.4-2.0) mmol/L Calcium (8.5-10.1) mg/dL Total Bilirubin (0.2-1.0) mg/dL AST (15-37) U/L ALT (14-59) U/L Alkaline Phosphatase (46-116) U/L C-Reactive Protein (0.0-0.9) mg/dL Total Protein (6.4-8.2) g/dL Albumin (3.4-5.0) g/dL Globulin Albumin/Globulin Ratio Urine Color Yellow (YELLOW) Urine Appearance Slightly cloudy (CLEAR) Urine pH 5.5 (5.0-9.0) Ur Specific [place] 1.015 (1.005-1.030) Urine Protein Trace H (NEGATIVE) Urine Glucose (UA) Negative (NEGATIVE) Urine Ketones Negative (NEGATIVE) Urine Occult Blood Trace-intact H (NEGATIVE) Urine Nitrite Negative (NEGATIVE) Urine Bilirubin Negative (NEGATIVE) Urine Urobilinogen 0.2 (0.2-1.0) mg/dL Ur Leukocyte Esterase Small H (NEGATIVE) Urine RBC 0-5 (0-5) /HPF Urine WBC 50-75 H (0-5/HPF) /HPF Ur Epithelial Cells Rare (NOT SEEN) /HPF Amorphous Sediment Occasional (NOT SEEN) /HPF Urine Bacteria Many H (0-FEW/HPF) /HPF Urine Mucus Not seen (NOT SEEN) /LPF Urine Opiates Screen Negative (NEGATIVE) Ur Oxycodone Screen Negative (NEGATIVE) Urine Methadone Screen Negative (NEGATIVE) Ur Barbiturates Screen Negative (NEGATIVE) U Tricyclic Antidepress Negative (NEGATIVE) Ur Phencyclidine Scrn Negative (NEGATIVE) Ur Amphetamine Screen Negative (NEGATIVE) U Methamphetamines Scrn Negative (NEGATIVE) Urine MDMA Screen Negative (NEGATIVE) U Benzodiazepines Scrn Negative (NEGATIVE) Urine Cocaine Screen Negative (NEGATIVE) U Marijuana (THC) Screen Negative (NEGATIVE) 03/02/21 03/02/21 Range/Units 21:13 21:13 WBC (5.0-10.0) 10^3/uL RBC (4.2-5.4) 10^6/uL Hgb (12.0-16.0) g/dL Hct (37.0-47.0) % MCV (80-100) fL MCH (27.0-34.0) pg MCHC (33.0-35.0) g/dL Plt Count (150-450) 10^3/uL Neut % (Auto) (42.2-75.2) % Lymph % (Auto) (20.5-50.1) % [place] % (Auto) (2-8) % Eos % (Auto) (1.0-3.0) % Baso % (Auto) (0.0-1.0) % Sodium 133 L (136-145) mmol/L Potassium 4.8 (3.5-5.1) mmol/L Chloride 100 (98-107) mmol/L Carbon Dioxide 24 (21-32) mmol/L Anion Gap 13.8 H (7-13) mEq/L BUN 29 H (7-18) mg/dL Creatinine 2.65 H (0.55-1.02) mg/dL Est Cr Clr Drug Dosing 20.31 mL/min Estimated GFR (MDRD) 18 BUN/Creatinine Ratio 10.9 (No establ ref range) Glucose 113 H (70-99) mg/dL Lactic Acid 1.0 (0.4-2.0) mmol/L Calcium 8.8 (8.5-10.1) mg/dL Total Bilirubin 1.0 (0.2-1.0) mg/dL AST 26 (15-37) U/L ALT 31 (14-59) U/L Alkaline Phosphatase 75 (46-116) U/L C-Reactive Protein 10.8 H (0.0-0.9) mg/dL Total Protein 7.0 (6.4-8.2) g/dL Albumin 3.4 (3.4-5.0) g/dL Globulin 3.6 Albumin/Globulin Ratio 0.9 Urine Color (YELLOW) Urine Appearance (CLEAR) Urine pH (5.0-9.0) Ur Specific [place] (1.005-1.030) Urine Protein (NEGATIVE) Urine Glucose (UA) (NEGATIVE) Urine Ketones (NEGATIVE) Urine Occult Blood (NEGATIVE) Urine Nitrite (NEGATIVE) Urine Bilirubin (NEGATIVE) Urine Urobilinogen (0.2-1.0) mg/dL Ur Leukocyte Esterase (NEGATIVE) Urine RBC (0-5) /HPF Urine WBC (0-5/HPF) /HPF Ur Epithelial Cells (NOT SEEN) /HPF Amorphous Sediment (NOT SEEN) /HPF Urine Bacteria (0-FEW/HPF) /HPF Urine Mucus (NOT SEEN) /LPF Urine Opiates Screen (NEGATIVE) Ur Oxycodone Screen (NEGATIVE) Urine Methadone Screen (NEGATIVE) Ur Barbiturates Screen (NEGATIVE) U Tricyclic Antidepress (NEGATIVE) Ur Phencyclidine Scrn (NEGATIVE) Ur Amphetamine Screen (NEGATIVE) U Methamphetamines Scrn (NEGATIVE) Urine MDMA Screen (NEGATIVE) U Benzodiazepines Scrn (NEGATIVE) Urine Cocaine Screen (NEGATIVE) U Marijuana (THC) Screen (NEGATIVE) Meds: Medications Discontinued Medications Generic Name Dose Route Start Last Admin Trade Name Freq PRN Reason Stop Dose Admin Acetaminophen 1,000 mg 03/02/21 21:38 Acetaminophen 500 Mg Tab PO 03/02/21 21:39 ONETIME ONE Cephalexin 500 mg 03/02/21 20:25 03/02/21 20:55 Cephalexin 500 Mg Cap PO 03/02/21 20:26 Not Given ONETIME ONE Ceftriaxone Sodium 1 gm/ 50 mls @ 100 mls/hr 03/02/21 20:34 03/02/21 20:54 Sodium Chloride IV 03/02/21 21:03 100 mls/hr ONETIME ONE Administration Sodium Chloride 1,000 mls @ 999 mls/hr 03/02/21 20:34 03/02/21 20:56 Normal Saline IV 03/02/21 21:34 250 mls/hr .BOLUS ONE Infusion Metoclopramide HCl 10 mg 03/02/21 22:05 03/02/21 22:18 Metoclopramide 10 Mg/2 Ml Sdv IVPUSH 03/02/21 22:06 10 mg ONETIME ONE Administration Ondansetron HCl 4 mg 03/02/21 20:22 03/02/21 20:55 Ondansetron 4 Mg Tab.Dis PO 03/02/21 20:23 Not Given ONETIME ONE Ondansetron HCl 4 mg 03/02/21 20:40 03/02/21 20:55 Ondansetron 4 Mg/2 Ml Sdv IVPUSH 03/02/21 20:41 4 mg ONETIME ONE Administration Phenazopyridine HCl 190 mg 03/02/21 20:22 03/02/21 20:55 Phenazopyridine 95 Mg Tab PO 03/02/21 20:23 190 mg ONETIME ONE Administration - Radiology Interpretation Free Text/Narrative:: [facility] Final Radiology Report Call: [phone] assistance Online chat: [email or web address] Name: RACHANA SILVA Age: 60Years F Date: 03/02/2021 SSN: -- : 1960 Study: CT ABDOMEN PELVIS WO CONT Requesting Physician: Zarina Hobbs Images: [id number] Addl Studies: Provided Clinical History: Hx polycyctic kidney; Right flank pain Contrast: Without Contrast Medium: Contrast Amount: Contrast Method: Page 1 of 2 PROCEDURE INFORMATION: Exam: CT Abdomen And Pelvis Without Contrast Exam date and time: 03/02/2021 10:32 PM Age: 60 years old Clinical indication: Nausea and vomiting and other: Diarrhea, body aches; Additional info: HX polycyctic kidney; Right flank pain TECHNIQUE: Imaging protocol: Computed tomography of the abdomen and pelvis without contrast. Radiation optimization: All CT scans at this facility use at least one of these dose optimization techniques: automated exposure control; mA and/or kV adjustment per patient size (includes targeted exams where dose is matched to clinical indication); or iterative reconstruc tion. COMPARISON: MR Abdomen wo Cont 04/09/2020 8:50 AM FINDINGS: Lungs: Minor lung base scarring versus linear atelectasis. No infiltrates. Pleural spaces: Minimal bilateral pleural effusion. Heart: No cardiac enlargement. Small pericardial effusion. Liver: Multifocal liver cysts. Largest cyst seen are in the left lobe of the liver measuring up to 3.9 cm. Series 2, image 34. Gallbladder and bile ducts: Normal. No calcified stones. No ductal dilation. Pancreas: Normal. No ductal dilation. Spleen: Normal. No splenomegaly. Adrenal glands: Adrenal glands are unremarkable bilaterally. Kidneys and ureters: Bilateral renal enlargement with innumerable cysts which nearly completely replace renal parenchyma consistent with an autosomal dominant polycystic kidney disease. A cyst in the anterior aspect of the right kidney has a calcification along its anterior wall which is benign in appearance. A posterior left renal cyst measuring 5.7 cm is slightly hyperdense. On MRI from 04/09/2020 this appear to represent some proteinaceous type material. Stomach and bowel: No gastric distention or gastric outlet obstruction. There is a moderate to large hiatal hernia. This is nonspecific in appearance. Small bowel loops are unremarkable in course and caliber. No edema. No obstruction. Large bowel has minimal fecal material. There is scattered fluid. This could represent a diarrheal illness. There is no large bowel edema. There is scattered diverticulosis without acute diverticulitis. Appendix: No evidence of appendicitis. A non inflamed appendix is seen. Series 2, images 108 through 117. Intraperitoneal space: No free air. Minimal free fluid in the posterior pelvic cul-de-sac. This is nonspecific. Vasculature: Unremarkable. No abdominal aortic aneurysm. Lymph nodes: Unremarkable. No enlarged lymph nodes. Urinary bladder: Urinary bladder is unremarkable. Reproductive: Previous hysterectomy. Bones/joints: Degenerative lumbar spine. No acute fracture. Soft tissues: Unremarkable. IMPRESSION: 1. Liquified colonic bowel contents suggesting a diarrheal illness. No christine colitis. 2. Bilateral polycystic kidney disease. No acute inflammatory features surrounding the kidneys. 3. Multiple hepatic cysts. 4. Small pericardial effusion. 5. Large hiatal hernia. 6. Minor pleural effusions. COMMENTS: Consistent with the [employer]'s Incidental Findings Committee white paper (J Am Mak Radiol 2018): Any incidental renal lesion less than 1 cm or classified as too small to characterize, or any incidental cystic renal lesion characterized as simple- appearing, is likely benign. No follow-up imaging is recommended for these lesions per consensus recommendations based on imaging criteria. Thank you for allowing us to participate in the care of your patient. Dictated and Authenticated by: Dav Elaine MD 03/02/2021 11:23 PM Central Time ([place] & [place]) - Re-Assessments/Exams Free Text/Narrative Re-Assessment/Exam: 03/02/21 UA performed while patient in waiting room. NS 1L bolus, Zofran 4mg IVP, Rocephin 1gm IVPB, and Pyridium PO administered while labs pending. Kidney function reduced compared to two days ago, given persistent flank pain will obtain CT abdomen/pelvis. Reglan 10mg IVP administered for persistent nausea. Findings of examination, imaging, and lab work reviewed with patient. Will treat UTI with Cefdinir. Supportive cares for UTI discussed. Red flag signs and symptoms which would warrant reevaluation reviewed. Patient instructed to follow up with primary care provider in 3-5 days. Patient verbalized understanding and agreement with the plan of care. Departure - Departure Time of Disposition: 23:29 Disposition: Home, Self-Care 01 Condition: Fair Clinical Impression: Diverticulosis, History of polycystic kidney disease, Hiatal hernia, Hepatic cyst Urinary tract infection Qualifiers: Urinary tract infection type: site unspecified Hematuria presence: without hematuria Qualified Code(s): N39.0 - Urinary tract infection, site not specified Nausea and vomiting Qualifiers: Vomiting type: unspecified Vomiting Intractability: non-intractable Qualified Code(s): R11.2 - Nausea with vomiting, unspecified Diarrhea Qualifiers: Diarrhea type: unspecified type Qualified Code(s): R19.7 - Diarrhea, unspecifi ed - Discharge Information *PRESCRIPTION DRUG MONITORING PROGRAM REVIEWED*: Not Applicable *COPY OF PRESCRIPTION DRUG MONITORING REPORT IN PATIENT SUDHAKAR: Not Applicable Instructions: Hernia, Adult Referrals: PCP,None [Primary Care Provider] - Forms: ED Department Discharge Additional Instructions: Rx: Cefdinir Rx: Zofran ODT 1.) Take all of your antibiotic until gone, even as symptoms improve 2.) Follow up with your primary care provider in 3-5 days regarding today's visit. 3.) Drink small, frequent sips of fluids to avoid nausea. 4.) Eat small, snack-sized meals to avoid nausea. Avoid spicy, greasy, high-fat foods. 5.) Return to the emergency department with persistent or worsening symptoms despite medication. Sepsis Event Note (ED) - Evaluation Sepsis Screening Result: No Definite Risk - Focused Exam Vital Signs: Vital Signs Temp Pulse Resp BP Pulse Ox 03/02/21 18:13 99.5 F 95 16 115/68 94 L
[2021-03-02] MEDS ORDERED: Sodium Chloride 0.9% 1,000 ML IV ONE (20:34)
[2021-03-02] MEDS ORDERED: cefTRIAXone 1 GM in Sodium Chloride 0.9% 50 ML IV ONE (20:34)
[2021-03-02] MEDS ORDERED: Ondansetron 4 MG/2 ML SDV IVPUSH ONE (20:40)
[2021-03-02] MEDS ORDERED: Acetaminophen 500 MG Tab PO ONE (21:38)
[2021-03-02 21:41] LABS: ANION GAP 13.8 mEq/L (7-13)
[2021-03-02] MEDS ORDERED: Metoclopramide 10 MG/2 ML SDV IVPUSH ONE (22:05)
--- NOTE | 2021-03-02 23:24 | CT ---
PROCEDURE INFORMATION: Exam: CT Abdomen And Pelvis Without Contrast Exam date and time: 03/02/2021 10:32 PM Age: 60 years old Clinical indication: Nausea and vomiting and other: Diarrhea, body aches; Additional info: HX polycyctic kidney; Right flank pain TECHNIQUE: Imaging protocol: Computed tomography of the abdomen and pelvis without contrast. Radiation optimization: All CT scans at this facility use at least one of these dose optimization techniques: automated exposure control; mA and/or kV adjustment per patient size (includes targeted exams where dose is matched to clinical indication); or iterative reconstruction. COMPARISON: MR Abdomen wo Cont 04/09/2020 8:50 AM FINDINGS: Lungs: Minor lung base scarring versus linear atelectasis. No infiltrates. Pleural spaces: Minimal bilateral pleural effusion. Heart: No cardiac enlargement. Small pericardial effusion. Liver: Multifocal liver cysts. Largest cyst seen are in the left lobe of the liver measuring up to 3.9 cm. Series 2, image 34. Gallbladder and bile ducts: Normal. No calcified stones. No ductal dilation. Pancreas: Normal. No ductal dilation. Spleen: Normal. No splenomegaly. Adrenal glands: Adrenal glands are unremarkable bilaterally. Kidneys and ureters: Bilateral renal enlargement with innumerable cysts which nearly completely replace renal parenchyma consistent with an autosomal dominant polycystic kidney disease. A cyst in the anterior aspect of the right kidney has a calcification along its anterior wall which is benign in appearance. A posterior left renal cyst measuring 5.7 cm is slightly hyperdense. On MRI from 04/09/2020 this appear to represent some proteinaceous type material. Stomach and bowel: No gastric distention or gastric outlet obstruction. There is a moderate to large hiatal hernia. This is nonspecific in appearance. Small bowel loops are unremarkable in course and caliber. No edema. No obstruction. Large bowel has minimal fecal material. There is scattered fluid. This could represent a diarrheal illness. There is no large bowel edema. There is scattered diverticulosis without acute diverticulitis. Appendix: No evidence of appendicitis. A non inflamed appendix is seen. Series 2, images 108 through 117. Intraperitoneal space: No free air. Minimal free fluid in the posterior pelvic cul-de-sac. This is nonspecific. Vasculature: Unremarkable. No abdominal aortic aneurysm. Lymph nodes: Unremarkable. No enlarged lymph nodes. Urinary bladder: Urinary bladder is unremarkable. Reproductive: Previous hysterectomy. Bones/joints: Degenerative lumbar spine. No acute fracture. Soft tissues: Unremarkable. IMPRESSION: 1. Liquified colonic bowel contents suggesting a diarrheal illness. No christine colitis. 2. Bilateral polycystic kidney disease. No acute inflammatory features surrounding the kidneys. 3. Multiple hepatic cysts. 4. Small pericardial effusion. 5. Large hiatal hernia. 6. Minor pleural effusions. COMMENTS: Consistent with the [employer]'s Incidental Findings Committee white paper (J Am Mak Radiol 2018): Any incidental renal lesion less than 1 cm or classified as too small to characterize, or any incidental cystic renal lesion characterized as simple-appearing, is likely benign. No follow-up imaging is recommended for these lesions per consensus recommendations based on imaging criteria.
== END 2021-03-02 23:57 | disposition home or self-care (01) ==
LOC: DL.ED 17:50
DX: K57.90 Diverticulosis of intestine, part unspecified, without perforation or abscess without bleeding (principal); N39.0 Urinary tract infection, site not specified; K76.89 Other specified diseases of liver; K44.9 Diaphragmatic hernia without obstruction or gangrene; R11.2 Nausea with vomiting, unspecified; R19.7 Diarrhea, unspecified; E78.00 Pure hypercholesterolemia, unspecified; I10 Essential (primary) hypertension; Z88.8 Allergy status to other drugs, medicaments and biological substances; Z88.1 Allergy status to other antibiotic agents; Z88.6 Allergy status to analgesic agent; Z91.040 Latex allergy status; Z88.0 Allergy status to penicillin; Z79.82 Long term (current) use of aspirin; Z79.899 Other long term (current) drug therapy
CPT/HCPCS: 36415; 74176; 80053; 80305; 81001; 83605; 85025; 86140; 87086; 87088; 87186; 96365; 96375; 99284; A9270; J0696; J2405; J2765; J7030